=== PATIENT | male | born 1950 | race Caucasian/White ===

== ENCOUNTER → 2023-12-03 11:45 | Outpatient (CLI) | payer MEDICARE, SELFPAY ==
--- NOTE | 2023-12-03 | DI.MRI_ITS ---
Exam(s) MR CERVICAL SPINE WO/W EXAM: MR CERVICAL SPINE WO/W CLINICAL HISTORY: MULTIPLE MYELOMA, LESIONS C/T SPINE ON PET TECHNIQUE: Multiplanar multisequence MRI of the cervical spine was performed without intravenous con trast. FINDINGS: BONES: Vertebral body heights are maintained. Alignment is normal. There are innumerable abnormal enh ancing lesions throughout the cervical spine. There is a large lesion on the left side of the T5 adry tebral body which extends into the soft tissues and left-sided transverse process and lamina. It russell sures 2.9 cm AP by roughly 1.8 cm transverse by 1.5 cm cephalo caudad. It extends are and obliterate s the neural foramen at the T4-5 and T5-6 levels. There is no significant encroachment into the cent ral canal. There is inferior extension to the superior facets of cysts state C6. Additional lesion is seen on the right side at the C7 level which also does not extend into the central canal however d oes involve the C6-7 neural foramen.. Discs: There degenerative disc changes but no evidence of disc herniation. CERVICAL CORD: Craniovertebral junction is unremarkable. The cervical cord is normal size and signal intensity. IMPRESSION: Multiple abnormal enhancing lesions throughout the cervical spine, consistent with the patient's hist ory of multiple myeloma. No compromise of the central canal. Largest lesions as described above. DATA REPOSITORY:
--- NOTE | 2023-12-03 | DI.MRI_ITS ---
Exam(s) MR THORACIC SPINE WO/W EXAM: MR THORACIC SPINE WO/W CLINICAL HISTORY: MULTIPLE MYELOMA, C90.00, C/T SPINE LESIONS ON PET. TECHNIQUE: Multiplanar multisequence MRI of the Thoracic spine was performed. CONTRAST MATERIAL: IV Contrast: 16 mL of Dotarem contrast administered. FINDINGS: Bones: There are innumerable enhancing lesions throughout the thoracic spine, consistent with the pat ient's history multiple myeloma. There is a mild compression fracture of the inferior endplate of T5 . There only slight retropulsion of the inferior endplate of T5. There is no significant encroachme nt into the central canal. There is an expansile lesion involving the proximal right rib of the T7 v ertebral body. There is enhancing lesion in the left transverse process of T5 4. There is an enhanc ing lesion in the right transverse process of T10. Cord: The thoracic cord is normal size and signal intensity. No intrinsic cord lesion is present. Discs: No disc herniation or bulge is present. Soft tissues: Normal. IMPRESSION: Innumerable abnormal enhancing lesions in the thoracic spine is with patient's history of multiple my eloma. There is a mild compression fracture of the inferior endplate of T5 with only slight posterio r retropulsion of the endplate. The central canal is not compromised. DATA REPOSITORY:
[2023-12-03] MEDS: Normal Saline Flush 10 ML SYR IVP (15:19)
[2023-12-03] MEDS: Gadoterate meglumine 20 ML SYRINGE 16 ML IVP (15:19)
== END ==
PROVIDERS: Visit Provider Internal Medicine Hematology & Oncology
DX: M48.54XA Collapsed vertebra, not elsewhere classified, thoracic region, initial encounter for fracture (principal); C90.00 Multiple myeloma not having achieved remission
CPT/HCPCS: 72156; 72157

== ENCOUNTER 2023-12-13 04:38 | Outpatient (CLI) | payer MEDICARE, SELFPAY ==
[2023-12-13 08:12] LABS: Abs Immature Grans 0.19 10^3/uL (0.0-0.06); Absolute Basophil Count 0.03 10^3/uL (0.0-0.2); Absolute Eosinophil Count 0.49 10^3/uL (0.0-0.7); Absolute Lymphocyte Count 2.75 10^3/uL (1.2-3.4); Absolute Monocyte Count 0.84 10^3/uL (0.1-0.8); Absolute Neutrophil Count 5.94 10^3/uL (1.2-6.7); Basophils % 0.3; Eosinophils % 4.8; HCT 41.9 % (40.0-50.0); HGB 13.9 g/dL (13.5-17.5); Immature Grans % 1.9; Lymphocytes % 26.9; MCH 31.9 pg (27.0-33.0); MCHC 33.2 % (32.0-36.0); MCV 96 fL (80-95); MPV 10.4 fL (8.0-11.0); Monocytes % 8.2; Neutrophils % 57.9; Platelet Count 219 10^3/uL (130-400); RBC 4.36 10^6/uL (4.36-5.78); RDW 14.4 % (11.8-14.1); RDW-SD 50.5 fL; WBC 10.24 10^3/uL (4.4-10.8)
[2023-12-13 10:04] LABS: ALT 14 U/L (16-63); AST 19 U/L (15-37); Albumin 3.4 g/dL (3.4-5.0); Alkaline Phosphatase 124 U/L (46-116); Anion Gap 10.6 mmol/L (3-11); BUN 42 mg/dL (7-18); Bilirubin, Total 0.3 mg/dL (0.2-1.0); CO2 25.4 mmol/L (21.0-32.0); CREATININE 1.4 mg/dL (0.70-1.30); Calcium 9.5 mg/dL (8.5-10.1); Chloride 106 mmol/L (98-107); Estimated GFR 52.74 (mL/min/1.73m2); Glucose 93 mg/dL (74-106); Potassium 4.6 mmol/L (3.5-5.1); Sodium 142 mmol/L (136-145)
== END 2023-12-13 04:39 | disposition home or self-care (01) ==
LOC: LBO 04:38
PROVIDERS: Visit Provider Internal Medicine Hematology & Oncology
DX: C90.00 Multiple myeloma not having achieved remission (principal)
CPT/HCPCS: 36415; 80053; 85025

== ENCOUNTER 2023-12-20 01:28 | Outpatient (CLI) | payer MEDICARE, SELFPAY ==
[2023-12-20 07:59] LABS: Abs Immature Grans 0.03 10^3/uL (0.0-0.06); Absolute Basophil Count 0.02 10^3/uL (0.0-0.2); Absolute Eosinophil Count 0.26 10^3/uL (0.0-0.7); Absolute Lymphocyte Count 1.88 10^3/uL (1.2-3.4); Absolute Monocyte Count 0.66 10^3/uL (0.1-0.8); Absolute Neutrophil Count 4.44 10^3/uL (1.2-6.7); Basophils % 0.3; Eosinophils % 3.6; HCT 39.5 % (40.0-50.0); HGB 12.7 g/dL (13.5-17.5); Immature Grans % 0.4; Lymphocytes % 25.8; MCH 30.9 pg (27.0-33.0); MCHC 32.2 % (32.0-36.0); MCV 96 fL (80-95); MPV 10.6 fL (8.0-11.0); Monocytes % 9.1; Neutrophils % 60.8; Platelet Count 180 10^3/uL (130-400); RBC 4.11 10^6/uL (4.36-5.78); RDW 14.1 % (11.8-14.1); WBC 7.29 10^3/uL (4.4-10.8)
== END 2023-12-20 01:29 | disposition home or self-care (01) ==
LOC: LBO 01:28
PROVIDERS: Visit Provider Internal Medicine Hematology & Oncology
DX: C90.00 Multiple myeloma not having achieved remission (principal)
CPT/HCPCS: 36415; 85025

== ENCOUNTER 2023-12-27 10:35 | Outpatient (CLI) | payer MEDICARE, SELFPAY ==
[2023-12-27 10:55] LABS: Abs Immature Grans 0.05 10^3/uL (0.0-0.06); Absolute Basophil Count 0.02 10^3/uL (0.0-0.2); Absolute Eosinophil Count 0.31 10^3/uL (0.0-0.7); Absolute Monocyte Count 0.79 10^3/uL (0.1-0.8); Absolute Neutrophil Count 5.57 10^3/uL (1.2-6.7); Basophils % 0.2; Eosinophils % 3.8; HCT 37.9 % (40.0-50.0); HGB 12.5 g/dL (13.5-17.5); Immature Grans % 0.6; Lymphocytes % 18.2; MCH 31.7 pg (27.0-33.0); MCV 96 fL (80-95); MPV 10.4 fL (8.0-11.0); Monocytes % 9.6; Neutrophils % 67.6; Platelet Count 239 10^3/uL (130-400); RBC 3.94 10^6/uL (4.36-5.78); RDW 14.2 % (11.8-14.1); RDW-SD 50.1 fL; WBC 8.24 10^3/uL (4.4-10.8)
[2023-12-27 11:16] LABS: ALT 9 U/L (16-63); AST 10 U/L (15-37); Albumin 3.4 g/dL (3.4-5.0); Alkaline Phosphatase 168 U/L (46-116); Anion Gap 7.6 mmol/L (3-11); BUN 37 mg/dL (7-18); Bilirubin, Total 0.3 mg/dL (0.2-1.0); CO2 28.4 mmol/L (21.0-32.0); CREATININE 1.3 mg/dL (0.70-1.30); Calcium 8.9 mg/dL (8.5-10.1); Chloride 104 mmol/L (98-107); Estimated GFR 57.65 (mL/min/1.73m2); Glucose 77 mg/dL (74-106); Potassium 4.1 mmol/L (3.5-5.1); Sodium 140 mmol/L (136-145); Total Protein 6.6 g/dL (6.4-8.2)
[2023-12-28 10:00] LABS: IgA 54 mg/dL (85-499); IgG 393 mg/dL (610-1616); IgM 12 mg/dL (35-242); Kappa Free Light Chain 20.14 mg/dL (0.33-1.94); Lambda Free Light Chain 0.75 mg/dL (0.57-2.63)
[2023-12-28 14:15] LABS: Albumin 62.7 % (55.8-66.1); Albumin g/dL 3.9 g/dL (3.6-5.2); Total Protein 6.2 g/dL (6.3-8.2)
== END 2023-12-27 10:36 | disposition home or self-care (01) ==
LOC: LBO 10:36
PROVIDERS: Visit Provider Internal Medicine Hematology & Oncology
DX: C90.00 Multiple myeloma not having achieved remission (principal)
CPT/HCPCS: 36415; 80053; 82784; 83883; 84165; 85025

== ENCOUNTER → 2023-12-31 12:45 | Outpatient (BNVA) | payer MEDICARE, SELFPAY | PROVIDERS: Referring Provider Physician Assistant; Visit Provider Student in an Organized Health Care Education/Training Program | DX: J44.9 Chronic obstructive pulmonary disease, unspecified (principal); Z87.891 Personal history of nicotine dependence | CPT/HCPCS: 99205 ==

== ENCOUNTER 2024-01-11 02:53 | Outpatient (CLI) | payer MEDICARE, SELFPAY ==
[2024-01-11] MEDS: Levalbuterol HFA 15 GM INH 4 PUFF IH (09:45)
[2024-01-11] MEDS: Inhaler, Assist Device 1 EACH MC (09:46)
--- NOTE | 2024-01-11 12:26 | W.PFT ---
Date of service: 01/11/24 Time of Service: 08:05 Pulmonary Function Test Result Indications: COPD Interpretation Spirometry: Although the FEV1/FVC ratio is technically normal the flow volume loop is consistent with mild airflow limitation. No bronchodilator response. Lung Volumes: Normal lung volumes Diffusion Capacity: Decreased diffusion Airway Pressure: Normal airways resistance Impression Mild airflow obstruction with decreased diffusion. Clinical Correlation therefore is recommended.
== END 2024-01-11 02:54 | disposition home or self-care (01) ==
LOC: RT 02:53
PROVIDERS: Visit Provider Student in an Organized Health Care Education/Training Program
DX: J44.9 Chronic obstructive pulmonary disease, unspecified (principal)
CPT/HCPCS: 94060; 94726; 94729

== ENCOUNTER 2024-01-17 05:38 | Outpatient (CLI) | payer MEDICARE, SELFPAY ==
[2024-01-17 07:11] LABS: Abs Immature Grans 0.19 10^3/uL (0.0-0.06); Absolute Basophil Count 0.03 10^3/uL (0.0-0.2); Absolute Lymphocyte Count 1.42 10^3/uL (1.2-3.4); Absolute Monocyte Count 1.53 10^3/uL (0.1-0.8); Absolute Neutrophil Count 6.83 10^3/uL (1.2-6.7); Basophils % 0.3; Eosinophils % 8.3; HCT 38.3 % (40.0-50.0); HGB 12.5 g/dL (13.5-17.5); Immature Grans % 1.7; MCH 31.8 pg (27.0-33.0); MCHC 32.6 % (32.0-36.0); MCV 98 fL (80-95); MPV 11.9 fL (8.0-11.0); Neutrophils % 62.7; Platelet Count 167 10^3/uL (130-400); RBC 3.93 10^6/uL (4.36-5.78); RDW 14.2 % (11.8-14.1); RDW-SD 50.7 fL
[2024-01-17 07:34] LABS: ALT 7 U/L (16-63); AST 10 U/L (15-37); Albumin 3.3 g/dL (3.4-5.0); Alkaline Phosphatase 119 U/L (46-116); Anion Gap 12.3 mmol/L (3-11); BUN 36 mg/dL (7-18); Bilirubin, Total 0.6 mg/dL (0.2-1.0); CO2 23.7 mmol/L (21.0-32.0); CREATININE 1.4 mg/dL (0.70-1.30); Calcium 8.3 mg/dL (8.5-10.1); Chloride 107 mmol/L (98-107); Estimated GFR 52.74 (mL/min/1.73m2); Glucose 106 mg/dL (74-106); Potassium 3.7 mmol/L (3.5-5.1); Sodium 143 mmol/L (136-145); Total Protein 6.6 g/dL (6.4-8.2)
== END 2024-01-17 05:39 | disposition home or self-care (01) ==
LOC: LBO 05:38
PROVIDERS: Visit Provider Nurse Practitioner Family
DX: C90.00 Multiple myeloma not having achieved remission (principal)
CPT/HCPCS: 36415; 80053; 85025

== ENCOUNTER 2024-01-24 07:59 | Outpatient (CLI) | payer MEDICARE, SELFPAY ==
[2024-01-24 07:57] LABS: Abs Immature Grans 0.11 10^3/uL (0.0-0.06); Absolute Basophil Count 0.02 10^3/uL (0.0-0.2); Absolute Eosinophil Count 1.28 10^3/uL (0.0-0.7); Absolute Lymphocyte Count 1.63 10^3/uL (1.2-3.4); Absolute Monocyte Count 1.03 10^3/uL (0.1-0.8); Basophils % 0.3; Eosinophils % 16.7; HCT 36.7 % (40.0-50.0); HGB 12.2 g/dL (13.5-17.5); Immature Grans % 1.4; Lymphocytes % 21.3; MCH 31.9 pg (27.0-33.0); MCHC 33.2 % (32.0-36.0); MCV 96 fL (80-95); MPV 12.1 fL (8.0-11.0); Monocytes % 13.4; Neutrophils % 46.9; Platelet Count 193 10^3/uL (130-400); RBC 3.83 10^6/uL (4.36-5.78); RDW 14.6 % (11.8-14.1); RDW-SD 50.8 fL; WBC 7.67 10^3/uL (4.4-10.8)
[2024-01-24 08:36] LABS: ALT 11 U/L (16-63); AST 10 U/L (15-37); Albumin 3.3 g/dL (3.4-5.0); Alkaline Phosphatase 110 U/L (46-116); Anion Gap 10.1 mmol/L (3-11); BUN 23 mg/dL (7-18); Bilirubin, Total 0.6 mg/dL (0.2-1.0); CO2 24.9 mmol/L (21.0-32.0); CREATININE 1.2 mg/dL (0.70-1.30); Calcium 7.9 mg/dL (8.5-10.1); Chloride 108 mmol/L (98-107); Estimated GFR 63.46 (mL/min/1.73m2); Glucose 107 mg/dL (74-106); Potassium 3.5 mmol/L (3.5-5.1); Sodium 143 mmol/L (136-145); Total Protein 6.4 g/dL (6.4-8.2)
[2024-01-25 14:24] LABS: Albumin 61.2 % (55.8-66.1); Albumin g/dL 3.5 g/dL (3.6-5.2); Total Protein 5.8 g/dL (6.3-8.2)
[2024-01-25 15:08] LABS: IgA 58 mg/dL (85-499); IgG 443 mg/dL (610-1616); IgM 17 mg/dL (35-242); Kappa Free Light Chain 3.09 mg/dL (0.33-1.94)
== END 2024-01-24 08:00 | disposition home or self-care (01) ==
LOC: LBO 08:00
PROVIDERS: Visit Provider Internal Medicine Hematology & Oncology
DX: C90.00 Multiple myeloma not having achieved remission (principal)
CPT/HCPCS: 36415; 80053; 82784; 83883; 84165; 85025

== ENCOUNTER 2024-02-07 10:18 | Outpatient (CLI) | payer MEDICARE, SELFPAY ==
[2024-02-07 09:34] LABS: Abs Immature Grans 0.19 10^3/uL (0.0-0.06); Absolute Basophil Count 0.06 10^3/uL (0.0-0.2); Absolute Eosinophil Count 0.66 10^3/uL (0.0-0.7); Absolute Lymphocyte Count 1.47 10^3/uL (1.2-3.4); Absolute Monocyte Count 0.58 10^3/uL (0.1-0.8); Absolute Neutrophil Count 3.03 10^3/uL (1.2-6.7); HCT 38.4 % (40.0-50.0); HGB 12.6 g/dL (13.5-17.5); Immature Grans % 3.2; Lymphocytes % 24.5; MCH 31.7 pg (27.0-33.0); MCHC 32.8 % (32.0-36.0); MCV 97 fL (80-95); Monocytes % 9.7; Neutrophils % 50.6; Platelet Count 189 10^3/uL (130-400); RBC 3.97 10^6/uL (4.36-5.78); RDW 14.7 % (11.8-14.1); WBC 5.99 10^3/uL (4.4-10.8)
[2024-02-07 09:49] LABS: ALT 11 U/L (16-63); AST 10 U/L (15-37); Albumin 3.3 g/dL (3.4-5.0); Alkaline Phosphatase 96 U/L (46-116); Anion Gap 12.1 mmol/L (3-11); BUN 27 mg/dL (7-18); Bilirubin, Total 0.4 mg/dL (0.2-1.0); CO2 22.9 mmol/L (21.0-32.0); CREATININE 1.3 mg/dL (0.70-1.30); Chloride 107 mmol/L (98-107); Estimated GFR 57.65 (mL/min/1.73m2); Glucose 103 mg/dL (74-106); LDH 181 U/L (85-227); Potassium 4.1 mmol/L (3.5-5.1); Sodium 142 mmol/L (136-145); Total Protein 6.6 g/dL (6.4-8.2)
[2024-02-08 10:40] LABS: IgA 79 mg/dL (85-499); IgG 524 mg/dL (610-1616); IgM 17 mg/dL (35-242); Kappa Free Light Chain 3.31 mg/dL (0.33-1.94); Lambda Free Light Chain 1.28 mg/dL (0.57-2.63)
[2024-02-08 13:49] LABS: Albumin 61.1 % (55.8-66.1); Albumin g/dL 3.7 g/dL (3.6-5.2); Total Protein 6.1 g/dL (6.3-8.2)
== END 2024-02-07 10:19 | disposition home or self-care (01) ==
LOC: LBO 10:19
PROVIDERS: PCP Family Medicine; Visit Provider Nurse Practitioner Family
DX: C90.00 Multiple myeloma not having achieved remission (principal)
CPT/HCPCS: 36415; 80053; 82784; 83615; 83883; 84165; 85025

== ENCOUNTER 2024-02-14 04:58 | Outpatient (CLI) | payer MEDICARE, SELFPAY ==
[2024-02-14 09:44] LABS: Abs Immature Grans 0.08 10^3/uL (0.0-0.06); Absolute Basophil Count 0.03 10^3/uL (0.0-0.2); Absolute Eosinophil Count 0.44 10^3/uL (0.0-0.7); Absolute Monocyte Count 1.18 10^3/uL (0.1-0.8); Basophils % 0.4; Eosinophils % 5.5; HCT 36.5 % (40.0-50.0); HGB 11.8 g/dL (13.5-17.5); Lymphocytes % 15.1; MCH 31.2 pg (27.0-33.0); MCHC 32.3 % (32.0-36.0); MCV 97 fL (80-95); MPV 12.3 fL (8.0-11.0); Monocytes % 14.9; Neutrophils % 63.1; Platelet Count 161 10^3/uL (130-400); RBC 3.78 10^6/uL (4.36-5.78); RDW 14.8 % (11.8-14.1); RDW-SD 52.1 fL; WBC 7.93 10^3/uL (4.4-10.8)
[2024-02-14 10:00] LABS: ALT 9 U/L (16-63); AST 11 U/L (15-37); Albumin 3.3 g/dL (3.4-5.0); Alkaline Phosphatase 85 U/L (46-116); Anion Gap 12.3 mmol/L (3-11); BUN 34 mg/dL (7-18); Bilirubin, Total 0.7 mg/dL (0.2-1.0); CO2 23.7 mmol/L (21.0-32.0); CREATININE 1.3 mg/dL (0.70-1.30); Calcium 8.5 mg/dL (8.5-10.1); Chloride 107 mmol/L (98-107); Estimated GFR 57.65 (mL/min/1.73m2); Glucose 96 mg/dL (74-106); LDH 154 U/L (85-227); Potassium 3.5 mmol/L (3.5-5.1); Sodium 143 mmol/L (136-145); Total Protein 6.3 g/dL (6.4-8.2)
[2024-02-15 09:47] LABS: IgA 75 mg/dL (85-499); IgG 547 mg/dL (610-1616); IgM 27 mg/dL (35-242); Kappa Free Light Chain 3.31 mg/dL (0.33-1.94); Lambda Free Light Chain 1.84 mg/dL (0.57-2.63)
[2024-02-15 14:15] LABS: Albumin 62.2 % (55.8-66.1); Albumin g/dL 3.7 g/dL (3.6-5.2); Total Protein 5.9 g/dL (6.3-8.2)
== END 2024-02-14 04:59 | disposition home or self-care (01) ==
PROVIDERS: PCP Family Medicine; Visit Provider Nurse Practitioner Family
DX: C90.00 Multiple myeloma not having achieved remission (principal)
CPT/HCPCS: 36415; 80053; 82784; 83615; 83883; 84165; 85025

== ENCOUNTER 2024-02-21 05:30 | Outpatient (CLI) | payer MEDICARE, SELFPAY ==
[2024-02-21 09:16] LABS: Abs Immature Grans 0.08 10^3/uL (0.0-0.06); Absolute Basophil Count 0.03 10^3/uL (0.0-0.2); Absolute Eosinophil Count 0.74 10^3/uL (0.0-0.7); Absolute Lymphocyte Count 1.14 10^3/uL (1.2-3.4); Absolute Monocyte Count 0.85 10^3/uL (0.1-0.8); Absolute Neutrophil Count 3.07 10^3/uL (1.2-6.7); Basophils % 0.5; Eosinophils % 12.5; HCT 36.3 % (40.0-50.0); HGB 11.8 g/dL (13.5-17.5); Immature Grans % 1.4; Lymphocytes % 19.3; MCH 31.8 pg (27.0-33.0); MCHC 32.5 % (32.0-36.0); MCV 98 fL (80-95); MPV 12.9 fL (8.0-11.0); Monocytes % 14.4; Neutrophils % 51.9; Platelet Count 133 10^3/uL (130-400); RBC 3.71 10^6/uL (4.36-5.78); RDW 15.3 % (11.8-14.1); RDW-SD 54.5 fL; WBC 5.91 10^3/uL (4.4-10.8)
[2024-02-21 09:51] LABS: ALT 24 U/L (16-63); AST 11 U/L (15-37); Albumin 3.4 g/dL (3.4-5.0); Alkaline Phosphatase 76 U/L (46-116); Anion Gap 10.3 mmol/L (3-11); BUN 31 mg/dL (7-18); Bilirubin, Total 0.6 mg/dL (0.2-1.0); CO2 26.7 mmol/L (21.0-32.0); CREATININE 1.2 mg/dL (0.70-1.30); Calcium 8.3 mg/dL (8.5-10.1); Chloride 105 mmol/L (98-107); Estimated GFR 63.46 (mL/min/1.73m2); Glucose 84 mg/dL (74-106); LDH 175 U/L (85-227); Potassium 3.8 mmol/L (3.5-5.1); Sodium 142 mmol/L (136-145); Total Protein 6.5 g/dL (6.4-8.2)
[2024-02-22 09:45] LABS: IgA 60 mg/dL (85-499); IgG 479 mg/dL (610-1616); IgM 22 mg/dL (35-242); Kappa Free Light Chain 2.37 mg/dL (0.33-1.94); Lambda Free Light Chain 1.31 mg/dL (0.57-2.63)
[2024-02-22 13:43] LABS: Albumin 62.4 % (55.8-66.1); Albumin g/dL 3.7 g/dL (3.6-5.2)
== END 2024-02-21 05:31 | disposition home or self-care (01) ==
PROVIDERS: Internal Medicine Hematology & Oncology; PCP Family Medicine; Visit Provider Nurse Practitioner Family
DX: C90.00 Multiple myeloma not having achieved remission (principal)
CPT/HCPCS: 36415; 80053; 82784; 83615; 83883; 84165; 85025

== ENCOUNTER 2024-03-06 01:09 | Outpatient (CLI) | payer MEDICARE, SELFPAY ==
[2024-03-06 12:58] LABS: Absolute Eosinophil Count 0.62 10^3/uL (0.0-0.7); Absolute Lymphocyte Count 1.59 10^3/uL (1.2-3.4); Absolute Monocyte Count 0.54 10^3/uL (0.1-0.8); Absolute Neutrophil Count 3.01 10^3/uL (1.2-6.7); Eosinophils % 10.6 %; HCT 37.7 % (40.0-50.0); HGB 12.8 g/dL (13.5-17.5); Lymphocytes % 27.1 %; MCV 97 fL (80-95); MPV 12.2 fL (8.0-11.0); Monocytes % 9.2 %; Neutrophils % 51.2 %; Platelet Count 175 10^3/uL (130-400); RBC 3.88 10^6/uL (4.36-5.78); RDW 15.5 % (11.8-14.1); RDW-SD 54.8 fL; WBC 5.87 10^3/uL (4.4-10.8)
[2024-03-06 12:59] LABS: Abs Immature Grans 0.07 10^3/uL (0.0-0.06); Absolute Basophil Count 0.04 10^3/uL (0.0-0.2); Basophils % 0.7 %; Immature Grans % 1.2 %
== END 2024-03-06 01:10 | disposition home or self-care (01) ==
LOC: LBO 01:09
PROVIDERS: PCP Family Medicine; Visit Provider Internal Medicine Hematology & Oncology
DX: C90.00 Multiple myeloma not having achieved remission (principal)
CPT/HCPCS: 36415; 85025

== ENCOUNTER 2024-03-13 05:07 | Outpatient (CLI) | payer MEDICARE, SELFPAY ==
[2024-03-13 09:31] LABS: Abs Immature Grans 0.04 10^3/uL (0.0-0.06); Absolute Basophil Count 0.05 10^3/uL (0.0-0.2); Absolute Eosinophil Count 0.78 10^3/uL (0.0-0.7); Absolute Lymphocyte Count 1.17 10^3/uL (1.2-3.4); Absolute Monocyte Count 1.18 10^3/uL (0.1-0.8); Absolute Neutrophil Count 4.48 10^3/uL (1.2-6.7); Basophils % 0.6 %; Eosinophils % 10.1 %; HCT 37.8 % (40.0-50.0); HGB 12.1 g/dL (13.5-17.5); Immature Grans % 0.5 %; Lymphocytes % 15.2 %; MCH 31.3 pg (27.0-33.0); MCV 98 fL (80-95); MPV 12.6 fL (8.0-11.0); Monocytes % 15.3 %; Neutrophils % 58.3 %; Platelet Count 123 10^3/uL (130-400); RBC 3.86 10^6/uL (4.36-5.78); RDW 14.9 % (11.8-14.1); RDW-SD 54.2 fL
== END 2024-03-13 05:08 | disposition home or self-care (01) ==
LOC: LBO 05:07
PROVIDERS: PCP Family Medicine; Visit Provider Internal Medicine Hematology & Oncology
DX: C90.00 Multiple myeloma not having achieved remission (principal)
CPT/HCPCS: 36415; 85025

== ENCOUNTER 2024-03-20 11:35 | Outpatient (CLI) | payer MEDICARE, SELFPAY ==
[2024-03-20 11:35] LABS: Abs Immature Grans 0.09 10^3/uL (0.0-0.06); Absolute Basophil Count 0.03 10^3/uL (0.0-0.2); Absolute Eosinophil Count 1.22 10^3/uL (0.0-0.7); Absolute Lymphocyte Count 0.92 10^3/uL (1.2-3.4); Absolute Monocyte Count 1.03 10^3/uL (0.1-0.8); Absolute Neutrophil Count 3.36 10^3/uL (1.2-6.7); Basophils % 0.5 %; Eosinophils % 18.3 %; HCT 38.7 % (40.0-50.0); HGB 12.4 g/dL (13.5-17.5); Immature Grans % 1.4 %; Lymphocytes % 13.8 %; MCH 31.4 pg (27.0-33.0); MCV 98 fL (80-95); MPV 11.8 fL (8.0-11.0); Monocytes % 15.5 %; Neutrophils % 50.5 %; Platelet Count 153 10^3/uL (130-400); RBC 3.95 10^6/uL (4.36-5.78); RDW 15.4 % (11.8-14.1); RDW-SD 54.8 fL; WBC 6.65 10^3/uL (4.4-10.8)
[2024-03-20 11:54] LABS: ALT 11 U/L (16-63); AST 11 U/L (15-37); Albumin 3.5 g/dL (3.4-5.0); Alkaline Phosphatase 61 U/L (46-116); BUN 23 mg/dL (7-18); Bilirubin, Total 0.6 mg/dL (0.2-1.0); CREATININE 1.2 mg/dL (0.70-1.30); Calcium 8.4 mg/dL (8.5-10.1); Chloride 106 mmol/L (98-107); Estimated GFR 63.46 (mL/min/1.73m2); Glucose 89 mg/dL (74-106); LDH 157 U/L (85-227); Potassium 3.5 mmol/L (3.5-5.1); Sodium 139 mmol/L (136-145); Total Protein 6.5 g/dL (6.4-8.2)
[2024-03-21 10:23] LABS: IgA 84 mg/dL (85-499); IgG 477 mg/dL (610-1616); IgM 22 mg/dL (35-242); Kappa Free Light Chain 2.25 mg/dL (0.33-1.94); Lambda Free Light Chain 2.01 mg/dL (0.57-2.63)
[2024-03-21 14:06] LABS: Albumin 63.8 % (55.8-66.1); Albumin g/dL 3.9 g/dL (3.6-5.2); Total Protein 6.1 g/dL (6.3-8.2)
== END 2024-03-20 11:36 | disposition home or self-care (01) ==
LOC: LBO 11:35
PROVIDERS: PCP Family Medicine; Visit Provider Nurse Practitioner Family
DX: C90.00 Multiple myeloma not having achieved remission (principal)
CPT/HCPCS: 36415; 80053; 82784; 83615; 83883; 84165; 85025

== ENCOUNTER 2024-03-27 10:48 | Outpatient (CLI) | payer MEDICARE, SELFPAY ==
[2024-03-27 10:30] LABS: Abs Immature Grans 0.03 10^3/uL (0.0-0.06); Absolute Basophil Count 0.08 10^3/uL (0.0-0.2); Absolute Eosinophil Count 0.28 10^3/uL (0.0-0.7); Absolute Lymphocyte Count 1.27 10^3/uL (1.2-3.4); Absolute Monocyte Count 0.74 10^3/uL (0.1-0.8); Basophils % 1.3 %; Eosinophils % 4.5 %; HCT 37.3 % (40.0-50.0); HGB 12.1 g/dL (13.5-17.5); Immature Grans % 0.5 %; Lymphocytes % 20.5 %; MCH 31.9 pg (27.0-33.0); MCHC 32.4 % (32.0-36.0); MCV 98 fL (80-95); MPV 10.7 fL (8.0-11.0); Monocytes % 11.9 %; Neutrophils % 61.3 %; Platelet Count 282 10^3/uL (130-400); RBC 3.79 10^6/uL (4.36-5.78); RDW 15.1 % (11.8-14.1); RDW-SD 54.7 fL
== END 2024-03-27 10:49 | disposition home or self-care (01) ==
LOC: LBO 10:49
PROVIDERS: PCP Family Medicine; Visit Provider Nurse Practitioner Family
DX: C90.00 Multiple myeloma not having achieved remission (principal)
CPT/HCPCS: 36415; 85025

== ENCOUNTER → 2024-04-02 13:01 | Outpatient (BNVA) | payer MEDICARE, SELFPAY | PROVIDERS: PCP Family Medicine; Visit Provider Physician Assistant Surgical | DX: J44.9 Chronic obstructive pulmonary disease, unspecified (principal); R25.1 Tremor, unspecified; Z87.891 Personal history of nicotine dependence | CPT/HCPCS: 99214 ==

== ENCOUNTER 2024-04-03 05:07 | Outpatient (CLI) | payer MEDICARE, SELFPAY ==
[2024-04-03 12:49] LABS: Abs Immature Grans 0.08 10^3/uL (0.0-0.06); Absolute Basophil Count 0.04 10^3/uL (0.0-0.2); Absolute Eosinophil Count 0.39 10^3/uL (0.0-0.7); Absolute Lymphocyte Count 1.25 10^3/uL (1.2-3.4); Absolute Monocyte Count 0.66 10^3/uL (0.1-0.8); Absolute Neutrophil Count 2.83 10^3/uL (1.2-6.7); Basophils % 0.8 %; Eosinophils % 7.4 %; HCT 37.9 % (40.0-50.0); HGB 12.4 g/dL (13.5-17.5); Immature Grans % 1.5 %; Lymphocytes % 23.8 %; MCH 31.8 pg (27.0-33.0); MCHC 32.7 % (32.0-36.0); MCV 97 fL (80-95); MPV 11.9 fL (8.0-11.0); Monocytes % 12.6 %; Neutrophils % 53.9 %; Platelet Count 150 10^3/uL (130-400); RDW 15.3 % (11.8-14.1); RDW-SD 54.6 fL; WBC 5.25 10^3/uL (4.4-10.8)
== END 2024-04-03 05:08 | disposition home or self-care (01) ==
PROVIDERS: PCP Family Medicine; Visit Provider Nurse Practitioner Family
DX: C90.00 Multiple myeloma not having achieved remission (principal)
CPT/HCPCS: 36415; 85025

== ENCOUNTER 2024-04-10 01:06 | Outpatient (CLI) | payer MEDICARE, SELFPAY ==
[2024-04-10 13:07] LABS: Abs Immature Grans 0.07 10^3/uL (0.0-0.06); Absolute Basophil Count 0.03 10^3/uL (0.0-0.2); Absolute Eosinophil Count 0.27 10^3/uL (0.0-0.7); Absolute Lymphocyte Count 0.89 10^3/uL (1.2-3.4); Absolute Monocyte Count 1.73 10^3/uL (0.1-0.8); Absolute Neutrophil Count 7.38 10^3/uL (1.2-6.7); Basophils % 0.3 %; Eosinophils % 2.6 %; HCT 36.1 % (40.0-50.0); Immature Grans % 0.7 %; Lymphocytes % 8.6 %; MCH 31.6 pg (27.0-33.0); MCHC 33.2 % (32.0-36.0); MCV 95 fL (80-95); MPV 12.5 fL (8.0-11.0); Monocytes % 16.7 %; Neutrophils % 71.1 %; Platelet Count 133 10^3/uL (130-400); RDW 15.4 % (11.8-14.1); RDW-SD 52.9 fL; WBC 10.37 10^3/uL (4.4-10.8)
[2024-04-10 13:26] LABS: ALT 21 U/L (16-63); AST 9 U/L (15-37); Albumin 3.5 g/dL (3.4-5.0); Alkaline Phosphatase 60 U/L (46-116); Anion Gap 12.6 mmol/L (3-11); BUN 27 mg/dL (7-18); Bilirubin, Total 0.8 mg/dL (0.2-1.0); CO2 22.4 mmol/L (21.0-32.0); CREATININE 1.4 mg/dL (0.70-1.30); Calcium 8.3 mg/dL (8.5-10.1); Chloride 103 mmol/L (98-107); Estimated GFR 52.74 (mL/min/1.73m2); Glucose 110 mg/dL (74-106); LDH 163 U/L (85-227); Potassium 3.9 mmol/L (3.5-5.1); Sodium 138 mmol/L (136-145); Total Protein 6.6 g/dL (6.4-8.2)
[2024-04-11 08:29] LABS: IgA 90 mg/dL (85-499); IgG 418 mg/dL (610-1616); IgM 16 mg/dL (35-242); Kappa Free Light Chain 1.75 mg/dL (0.33-1.94); Lambda Free Light Chain 1.86 mg/dL (0.57-2.63)
[2024-04-11 14:29] LABS: Albumin 62.6 % (55.8-66.1); Albumin g/dL 3.8 g/dL (3.6-5.2); Total Protein 6.1 g/dL (6.3-8.2)
== END 2024-04-10 01:07 | disposition home or self-care (01) ==
LOC: LBO 01:06
PROVIDERS: PCP Family Medicine; Visit Provider Nurse Practitioner Family
DX: C90.00 Multiple myeloma not having achieved remission (principal)
CPT/HCPCS: 36415; 80053; 82784; 83615; 83883; 84165; 85025

== ENCOUNTER 2024-04-14 11:10 | Emergency (ER) | payer MEDICARE, SELFPAY ==
[2024-04-14 11:14] VITALS: BP 92/55; PULSE 60; RESP 20; O2SAT 97
--- NOTE | 2024-04-14 11:23 | W.ED.GENAD ---
Discharge Plan Disposition Patient Disposition: Home Condition: Stable Discharge Details Clinical Impression: Pain in lower jaw Primary Care Provider: Nba De La Torre ED Provider: Boubacar Galvez Leroy Meds and New Rx's Prescriptions: New prednisone 20 mg tablet 60 mg PO DAILY 4 Days Qty: 12 0RF amoxicillin-pot clavulanate 875-125 mg tablet 1 tab PO BID Qty: 14 0RF Continued magnesium 250 mg tablet 400 mg PO DAILY cyanocobalamin (vitamin B-12) 1,000 mcg capsule 1,000 mcg PO DAILY oxycodone 5 mg tablet 5 mg PO Q4H PRN ibuprofen 200 mg tablet 200 mg PO Q6H PRN lidocaine 5 % adhesive patch,medicated 1 patch topical DAILY Rx Instructions: leave on most painful area for up to 12 hrs acyclovir 400 mg tablet 400 mg PO BID lenalidomide 10 mg capsule 25 mg PO DAILY Rx Instructions: swallow whole with glass of water; do not open, crush, chew , break, or dissolve acetaminophen 500 mg capsule 1,000 mg PO Q6H PRN bortezomib [Velcade] 3.5 mg recon soln 2.4 mg IV QWEEK Rx Instructions: administer on days 1, 8, 15, and 22 of a 35-day/5-week cycle albuterol sulfate 90 mcg/actuation HFA aerosol inhaler 2 puff inhalation Q6H PRN (Reason: shortness of breath or wheezing) Qty: 8.5 12RF Breztri Aerosphere 160-9-4.8 mcg/actuation HFA aerosol inhaler 2 inh inhalation BID Qty: 10.7 12RF dexamethasone 4 mg tablet 40 mg PO DAILY Rx Instructions: Once a week before Chemo treatment levalbuterol HCl 0.63 mg/3 mL solution for nebulization 0.63 mg inhalation Q6H PRN Qty: 90 12RF denosumab 120 mg/1.7 mL (70 mg/mL) solution 120 mg subcut Q4W clonazepam 0.5 mg tablet See Rx Instructions PO BID PRN Rx Instructions: .5-1 tablet orally twice a day PRN; levothyroxine 88 mcg tablet 88 mcg PO DAILY multivitamin Tablet 1 tab PO DAILY sertraline 100 mg tablet 100 mg PO DAILY carbidopa-levodopa 25-100 mg tablet extended release See Rx Instructions PO TID Rx Instructions: orally three times a day; vitamin D3-vitamin K2 (MK4) 1,000-100 unit-mcg tablet 1 tab PO DAILY aspirin 81 mg tablet,delayed release (DR/EC) 81 mg PO DAILY [id number] mg-12.5mcg-22.5 m 1 cap PO BID Discharge Instructions Additional Instructions: You are being treated for a likely dental infection If no improvement within a week follow-up with your dentist If you feel more ill or have new symptoms such as high fevers return to the emergency department for reevaluation HPI General Mode of arrival: ambulatory. Date/Time Provider Initiated Documentation: 04/14/24 11:13. Limitations to Documentation: no limitations. Information obtained by: patient. History of Present Illness 73 year old M presents to the emergency department with the chief complaint of left lower jaw pain and swelling, described as moderate, Quality is described as aching, Patient started experiencing this day(s) (2) and it has been constant. No relieving factors improve symptom(s), No exacerbating factors reported . Patient notes no other symptoms.; denies fever/chills. Related Data Home Medications Medication Instructions Recorded Confirmed clonazepam 0.5 mg tablet See Rx Instructions PO BID PRN 12/14/23 02/04/24 levothyroxine 88 mcg tablet 88 mcg PO DAILY 12/14/23 04/02/24 multivitamin 1 tab PO DAILY 12/14/23 04/02/24 sertraline 100 mg tablet 100 mg PO DAILY 12/14/23 04/02/24 acetaminophen 500 mg capsule 1,000 mg PO Q6H PRN 12/31/23 04/02/24 acyclovir 400 mg tablet 400 mg PO BID 12/31/23 04/02/24 albuterol sulfate 90 mcg/actuation 2 puff inhalation Q6H PRN 12/31/23 04/02/24 aerosol inhaler shortness of breath or wheezing #8.5 grams bortezomib 3.5 mg injection powder 2.4 mg IV QWEEK 12/31/23 04/02/24 for solution (Velcade) budesonide 160 mcg-glycopyr 9 2 inh inhalation BID #10.7 grams 12/31/23 04/02/24 mcg-formot 4.8 mcg/actuation HFA inhaler (Breztri Aerosphere) cyanocobalamin (vitamin B-12) 1,000 mcg PO DAILY 12/31/23 04/02/24 1,000 mcg capsule ibuprofen 200 mg tablet 200 mg PO Q6H PRN 12/31/23 04/02/24 lenalidomide 10 mg capsule 25 mg PO DAILY 12/31/23 04/02/24 lidocaine 5 % topical patch 1 patch topical DAILY 12/31/23 04/02/24 magnesium 250 mg tablet 400 mg PO DAILY 12/31/23 04/02/24 oxycodone 5 mg tablet 5 mg PO Q4H PRN 12/31/23 04/02/24 aspirin 81 mg tablet,delayed 81 mg PO DAILY 01/16/24 04/02/24 release carbidopa ER 25 mg-levodopa 100 mg See Rx Instructions PO TID 01/16/24 04/02/24 tablet,extended release cholecalciferol (vit D3) 1,000 1 tab PO DAILY 01/16/24 02/04/24 unit-vitamin K2 (MK4) 100 mcg tablet denosumab 120 mg/1.7 mL (70 mg/mL) 120 mg subcut Q4W 02/04/24 04/02/24 subcutaneous solution dexamethasone 4 mg tablet 40 mg PO DAILY 02/04/24 04/02/24 [id number] 1 cap PO BID 02/29/24 04/02/24 mg-12.5mcg-22.5 m levalbuterol HCl 0.63 mg/3 mL 0.63 mg (3 mL) inhalation Q6H PRN 04/02/24 04/02/24 solution for nebulization #90 mL amoxicillin 875 mg-potassium 1 tab PO BID #14 tabs 04/14/24 clavulanate 125 mg tablet prednisone 20 mg tablet 60 mg (3 x 20 mg) PO DAILY 4 days 04/14/24 #12 tabs Previous Rx's Medication Instructions Recorded albuterol sulfate 90 mcg/actuation 2 puff inhalation Q6H PRN 12/31/23 aerosol inhaler shortness of breath or wheezing #8.5 grams budesonide 160 mcg-glycopyr 9 2 inh inhalation BID #10.7 grams 12/31/23 mcg-formot 4.8 mcg/actuation HFA inhaler (Breztri Aerosphere) levalbuterol HCl 0.63 mg/3 mL 0.63 mg (3 mL) inhalation Q6H PRN 04/02/24 solution for nebulization #90 mL amoxicillin 875 mg-potassium 1 tab PO BID #14 tabs 04/14/24 clavulanate 125 mg tablet prednisone 20 mg tablet 60 mg (3 x 20 mg) PO DAILY 4 days 04/14/24 #12 tabs Allergies Allergy/AdvReac Type Severity Reaction Status Date / Time xena Allergy mouth Uncoded 04/14/24 11:16 breakout generic advair AdvReac Severe swollen Uncoded 04/14/24 11:16 lips,blisters in mouth,loss of smell General Stated Complaint: [facility] ELYSSA: 3 Review of Systems All systems reviewed & are unremarkable except as noted in HPI and below Constitutional Constitutional: Denies chills, Denies fever(s) and Denies weakness ENT Ears, Nose, Mouth, and Throat: Denies change in voice Cardiovascular Cardiovascular: Denies chest pain and Denies dyspnea Respiratory Respiratory: Denies cough and Denies dyspnea Gastrointestinal Gastrointestinal: Denies abdominal pain, Denies nausea and Denies vomiting Musculoskeletal Musculoskeletal: Denies joint swelling Neurologic Neurologic: Denies weakness Exam Const General: no acute distress Orientation: alert [facility] Head: normal to inspection Ears: external ears normal General nose exam: external nose normal Mouth: moist mucous membranes Eyes General: appearance normal, both eyes and all related structures Neck Neck: normal visual inspection Resp Effort & Inspection: normal respiratory effort and able to speak in complete sentences Cardio Rate: regular rate Skin General skin exam: no rashes or lesions noted Neuro General: patient alert and patient oriented x3 Extrem General: normal to inspection Psych Mental Status: mental status grossly normal Course Vital Signs Vital signs: Vital Signs Pulse 60 04/14/24 11:14 Respiratory Rate 04/14/24 11:14 Blood Pressure 92/55 L 04/14/24 11:14 Pulse Oximetry 97 04/14/24 11:14 Pulse 60 04/14/24 11:14 Respiratory Rate 04/14/24 11:14 Blood Pressure 92/55 L 04/14/24 11:14 Blood Pressure Position Sitting 04/14/24 11:14 Pulse Oximetry 97 04/14/24 11:14 Oxygen Delivery Method Room Air 04/14/24 11:14 Oxygen Flow Rate 0 04/14/24 11:14 Medical Decision Making 73-year-old male with a history of multiple myeloma, COPD, who comes in with 2 days of left lower jaw discomfort and mild swelling. He denies any fevers, difficulty swallowing. He arrives amatory and appears well in no distress. He has very mild swelling along the left lower mandible. He has no submandibular swelling, no pain over the hyoid, no restricted neck movements. He has a normal posterior pharynx with midline uvula. He has a removed the left mid molar that has mild erythema, no drainage, no visible drainable abscess. His symptoms are most consistent with likely a dental infection. Given his well appearance doubt Vernon's or other serious pathology and do not feel any labs or imaging indicated. Will start him on Augmentin and a short course of prednisone and advised to follow-up with a dentist, return precautions given Differential Diagnosis Differential Diagnosis: Dental abscess, pulpitis Quality:[facility] Health Related Social Needs: No Data to Display PFSH All Active Problems (Updated 04/14/24 @ 11:23 by Boubacar Galvez MD) Pain in lower jaw (Acute) Multiple myeloma in remission (Acute) [place] light chain myeloma (Acute ~11/2023) Hypothyroidism (Chronic) Multiple myeloma not having achieved remission (Acute) Bronchitis, mucopurulent recurrent (Acute) Personal history of nicotine dependence (Acute) COPD (chronic obstructive pulmonary disease) (Chronic) Tremor (Acute) Memory impairment (Acute) Parkinson disease (Chronic) Insomnia (Acute) Hx of chronic kidney disease (Acute) Hearing impaired person (Acute) Depression (Chronic) COPD with acute exacerbation (Acute) Surgical History (Updated 01/16/24 @ 16:01 by Kirstie Hastings RN) History of biopsy (10/31/23) Shoulder mass. [facility] History of bone marrow biopsy (11/29/23) [facility] Family History (Updated 01/31/24 @ 09:58 by She Manzano) Mother Lymphoma Heart disease Pacemaker Asthma Father Asbestosis Brother Brain aneurysm Sister Stroke Maternal Grandfather No problems noted. Maternal Grandmother Diabetes Social History (Updated 01/09/24 @ 09:15 by Lesly Blanco) Smoking/Tobacco Use Status: Former Tobacco Use tobacco type: cigarettes and e-cigarettes Quit Date: 10/29/20 Pack-years: 50 Smoking risk assessment performed?: Yes Alcohol Intake: current Alcohol Intake frequency: holidays/special occasions only Drug use: Socially Substance use type: marijuana Adopted: No Caregiver/Support person: Yes (Spouse) Foster care: No Household members: spouse Housing: apartment Number of Children: 1 number of grandchildren: 0 Communication Needs: Hard of Hearing Education Level: college Do you need help understanding health information?: Often current occupation: Retired Pets and animals: Yes (Emotional support cat) Pets and animals: cat(s) Sexually active: No Do you think of yourself as: straight/heterosexual Current gender identity: male What is your relationship status?: How often do you talk on the phone with friends or family?: once per week How often do you get together with friends or relatives?: decline to answer Do you belong to any clubs or organized social groups?: no Panel score (0-1 are the most socially isolated patients): 1 What type of physical activity do you participate in: none Duration: < 15 minutes/day Cassandra/Denominational: Rastafari Special cassandra needs: No Seatbelt use: always Drive intox 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
[2024-04-14 11:27] VITALS: BP 115/94; PULSE 66; RESP 16; O2SAT 97
[2024-04-14 11:33] VITALS: BP 99/56; PULSE 64; RESP 16; O2SAT 98
== END 2024-04-14 11:33 | disposition home or self-care (01) ==
PROVIDERS: Emergency Provider Emergency Medicine; PCP Family Medicine
DX: R68.84 Jaw pain (principal); C90.00 Multiple myeloma not having achieved remission; J44.9 Chronic obstructive pulmonary disease, unspecified; G20.A1 Parkinson's disease without dyskinesia, without mention of fluctuations; Z79.82 Long term (current) use of aspirin; Z87.891 Personal history of nicotine dependence
CPT/HCPCS: 99283

== ENCOUNTER 2024-04-24 13:26 | Outpatient (CLI) | payer MEDICARE, SELFPAY ==
[2024-04-24 12:25] LABS: Abs Immature Grans 0.02 10^3/uL (0.0-0.06); Absolute Basophil Count 0.11 10^3/uL (0.0-0.2); Absolute Eosinophil Count 0.44 10^3/uL (0.0-0.7); Absolute Lymphocyte Count 1.16 10^3/uL (1.2-3.4); Absolute Monocyte Count 0.99 10^3/uL (0.1-0.8); Absolute Neutrophil Count 3.91 10^3/uL (1.2-6.7); Basophils % 1.7 %; Eosinophils % 6.6 %; HCT 34.3 % (40.0-50.0); HGB 11.2 g/dL (13.5-17.5); Immature Grans % 0.3 %; Lymphocytes % 17.5 %; MCH 31.6 pg (27.0-33.0); MCHC 32.7 % (32.0-36.0); MCV 97 fL (80-95); MPV 10.1 fL (8.0-11.0); Monocytes % 14.9 %; Platelet Count 374 10^3/uL (130-400); RBC 3.54 10^6/uL (4.36-5.78); RDW 15.9 % (11.8-14.1); WBC 6.63 10^3/uL (4.4-10.8)
[2024-04-24 12:40] LABS: ALT 11 U/L (16-63); AST 11 U/L (15-37); Albumin 3.1 g/dL (3.4-5.0); Alkaline Phosphatase 63 U/L (46-116); Anion Gap 8.9 mmol/L (3-11); BUN 30 mg/dL (7-18); CO2 26.1 mmol/L (21.0-32.0); CREATININE 1.2 mg/dL (0.70-1.30); Chloride 106 mmol/L (98-107); Estimated GFR 63.46 (mL/min/1.73m2); Glucose 110 mg/dL (74-106); Potassium 3.9 mmol/L (3.5-5.1); Sodium 141 mmol/L (136-145); Total Protein 6.6 g/dL (6.4-8.2)
[2024-04-25 08:24] LABS: IgA 95 mg/dL (85-499); IgG 445 mg/dL (610-1616); IgM 57 mg/dL (35-242); Kappa Free Light Chain 2.24 mg/dL (0.33-1.94); Lambda Free Light Chain 1.85 mg/dL (0.57-2.63)
[2024-04-25 15:11] LABS: Albumin g/dL 3.3 g/dL (3.6-5.2); Comment (See Note); Total Protein 5.9 g/dL (6.3-8.2)
[2024-04-25 17:25] LABS: Immunotyping, Serum (See Note)
== END 2024-04-24 13:27 | disposition home or self-care (01) ==
LOC: LBO 13:26
PROVIDERS: PCP Family Medicine; Visit Provider Nurse Practitioner Family
DX: C90.00 Multiple myeloma not having achieved remission (principal)
CPT/HCPCS: 36415; 80053; 82784; 83883; 84165; 85025; 86320

== ENCOUNTER 2024-05-16 12:01 | Outpatient (CLI) | payer MEDICARE, SELFPAY ==
[2024-05-16 11:48] LABS: Abs Immature Grans 0.02 10^3/uL (0.0-0.06); Absolute Basophil Count 0.05 10^3/uL (0.0-0.2); Absolute Eosinophil Count 0.23 10^3/uL (0.0-0.7); Absolute Lymphocyte Count 1.45 10^3/uL (1.2-3.4); Absolute Monocyte Count 0.86 10^3/uL (0.1-0.8); Absolute Neutrophil Count 4.64 10^3/uL (1.2-6.7); Basophils % 0.7 %; Eosinophils % 3.2 %; HCT 39.6 % (40.0-50.0); HGB 12.8 g/dL (13.5-17.5); Immature Grans % 0.3 %; MCH 31.3 pg (27.0-33.0); MCHC 32.3 % (32.0-36.0); MCV 97 fL (80-95); Monocytes % 11.9 %; Neutrophils % 63.9 %; Platelet Count 210 10^3/uL (130-400); RBC 4.09 10^6/uL (4.36-5.78); RDW 15.9 % (11.8-14.1); RDW-SD 56.9 fL; WBC 7.25 10^3/uL (4.4-10.8)
[2024-05-16 12:08] LABS: ALT 11 U/L (16-63); AST 9 U/L (15-37); Albumin 3.6 g/dL (3.4-5.0); Alkaline Phosphatase 87 U/L (46-116); Anion Gap 12.4 mmol/L (3-11); BUN 27 mg/dL (7-18); Bilirubin, Total 0.28 mg/dL (0.2-1.0); CO2 22.6 mmol/L (21.0-32.0); Calcium 8.2 mg/dL (8.5-10.1); Chloride 109 mmol/L (98-107); Estimated GFR 78.98 (mL/min/1.73m2); Glucose 77 mg/dL (74-106); LDH 156 U/L (85-227); Potassium 3.8 mmol/L (3.5-5.1); Sodium 144 mmol/L (136-145); Total Protein 7.1 g/dL (6.4-8.2)
[2024-05-19 10:25] LABS: IgA 109 mg/dL (85-499); IgG 567 mg/dL (610-1616); IgM 37 mg/dL (35-242); Kappa Free Light Chain 1.72 mg/dL (0.33-1.94)
[2024-05-19 15:45] LABS: Albumin 61.4 % (55.8-66.1); Albumin g/dL 4.1 g/dL (3.6-5.2); Comment (See Note); Total Protein 6.6 g/dL (6.3-8.2)
[2024-06-27 10:05] LABS: Immunotyping, Serum (See Note)
== END 2024-05-16 12:02 | disposition home or self-care (01) ==
LOC: LBO 12:02
PROVIDERS: PCP Family Medicine; Visit Provider Nurse Practitioner Family
DX: C90.00 Multiple myeloma not having achieved remission (principal)
CPT/HCPCS: 36415; 80053; 82784; 83615; 83883; 84165; 85025; 86320

== ENCOUNTER 2024-06-12 10:12 | Outpatient (CLI) | payer MEDICARE, SELFPAY ==
[2024-06-12 11:05] LABS: Abs Immature Grans 0.04 10^3/uL (0.0-0.06); Absolute Basophil Count 0.02 10^3/uL (0.0-0.2); Absolute Eosinophil Count 0.27 10^3/uL (0.0-0.7); Absolute Lymphocyte Count 1.55 10^3/uL (1.2-3.4); Absolute Monocyte Count 0.84 10^3/uL (0.1-0.8); Absolute Neutrophil Count 2.34 10^3/uL (1.2-6.7); Basophils % 0.4 %; Eosinophils % 5.3 %; HCT 36.7 % (40.0-50.0); HGB 11.7 g/dL (13.5-17.5); Immature Grans % 0.8 %; Lymphocytes % 30.6 %; MCHC 31.9 % (32.0-36.0); MCV 97 fL (80-95); Monocytes % 16.6 %; Neutrophils % 46.3 %; Platelet Count 213 10^3/uL (130-400); RBC 3.77 10^6/uL (4.36-5.78); RDW 14.8 % (11.8-14.1); RDW-SD 53.3 fL; WBC 5.06 10^3/uL (4.4-10.8)
[2024-06-12 11:23] LABS: ALT 11 U/L (16-63); AST 11 U/L (15-37); Albumin 3.1 g/dL (3.4-5.0); Alkaline Phosphatase 44 U/L (46-116); Anion Gap 8.9 mmol/L (3-11); BUN 29 mg/dL (7-18); Bilirubin, Total 0.43 mg/dL (0.2-1.0); CO2 24.1 mmol/L (21.0-32.0); CREATININE 1.2 mg/dL (0.70-1.30); Calcium 8.9 mg/dL (8.5-10.1); Chloride 109 mmol/L (98-107); Estimated GFR 63.46 (mL/min/1.73m2); Glucose 98 mg/dL (74-106); LDH 150 U/L (85-227); Potassium 3.8 mmol/L (3.5-5.1); Sodium 142 mmol/L (136-145); Total Protein 6.2 g/dL (6.4-8.2)
[2024-06-13 08:53] LABS: IgA 130 mg/dL (85-499); IgG 540 mg/dL (610-1616); IgM 23 mg/dL (35-242); Kappa Free Light Chain 4.17 mg/dL (0.33-1.94); Lambda Free Light Chain 2.49 mg/dL (0.57-2.63)
[2024-06-16 15:16] LABS: Albumin g/dL 3.5 g/dL (3.6-5.2); Comment (See Note); Total Protein 5.8 g/dL (6.3-8.2)
[2024-06-17 08:21] LABS: Immunotyping, Serum (See Note)
== END 2024-06-12 10:13 | disposition home or self-care (01) ==
LOC: LBO 10:12
PROVIDERS: PCP Family Medicine; Visit Provider Nurse Practitioner Family
DX: C90.00 Multiple myeloma not having achieved remission (principal)
CPT/HCPCS: 36415; 80053; 82784; 83615; 83883; 84165; 85025; 86320

== ENCOUNTER 2024-07-10 03:31 | Outpatient (CLI) | payer MEDICARE, SELFPAY ==
[2024-07-10 10:54] LABS: Abs Immature Grans 0.04 10^3/uL (0.0-0.06); Absolute Basophil Count 0.06 10^3/uL (0.0-0.2); Absolute Eosinophil Count 1.02 10^3/uL (0.0-0.7); Absolute Lymphocyte Count 1.83 10^3/uL (1.2-3.4); Absolute Monocyte Count 1.12 10^3/uL (0.1-0.8); Basophils % 0.7 %; Eosinophils % 11.9 %; HCT 39.7 % (40.0-50.0); HGB 12.9 g/dL (13.5-17.5); Immature Grans % 0.5 %; Lymphocytes % 21.4 %; MCH 31.5 pg (27.0-33.0); MCHC 32.5 % (32.0-36.0); MCV 97 fL (80-95); MPV 10.8 fL (8.0-11.0); Monocytes % 13.1 %; Neutrophils % 52.4 %; Platelet Count 192 10^3/uL (130-400); RBC 4.09 10^6/uL (4.36-5.78); RDW 14.6 % (11.8-14.1); RDW-SD 51.7 fL; WBC 8.57 10^3/uL (4.4-10.8)
[2024-07-10 11:17] LABS: ALT 11 U/L (16-63); AST 27 U/L (15-37); Albumin 3.5 g/dL (3.4-5.0); Alkaline Phosphatase 58 U/L (46-116); Anion Gap 6.9 mmol/L (3-11); BUN 33 mg/dL (7-18); Bilirubin, Total 0.47 mg/dL (0.2-1.0); CO2 27.1 mmol/L (21.0-32.0); CREATININE 1.2 mg/dL (0.70-1.30); Calcium 8.9 mg/dL (8.5-10.1); Chloride 106 mmol/L (98-107); Estimated GFR 63.46 (mL/min/1.73m2); Glucose 99 mg/dL (74-106); Potassium 3.9 mmol/L (3.5-5.1); Sodium 140 mmol/L (136-145); Total Protein 6.9 g/dL (6.4-8.2)
[2024-07-11 09:30] LABS: IgA 203 mg/dL (85-499); IgG 684 mg/dL (610-1616); IgM 32 mg/dL (35-242); Kappa Free Light Chain 4.43 mg/dL (0.33-1.94); Lambda Free Light Chain 2.61 mg/dL (0.57-2.63)
[2024-07-11 13:19] LABS: Albumin 61.5 % (55.8-66.1); Total Protein 6.5 g/dL (6.3-8.2)
== END 2024-07-10 03:32 | disposition home or self-care (01) ==
PROVIDERS: PCP Family Medicine; Visit Provider Nurse Practitioner Family
DX: C90.00 Multiple myeloma not having achieved remission (principal)
CPT/HCPCS: 36415; 80053; 82784; 83883; 84165; 85025

== ENCOUNTER 2024-08-18 02:30 | Outpatient (CLI) | payer MEDICARE, SELFPAY ==
[2024-08-18 08:33] LABS: Abs Immature Grans 0.02 10^3/uL (0.0-0.06); Absolute Basophil Count 0.05 10^3/uL (0.0-0.2); Absolute Eosinophil Count 0.72 10^3/uL (0.0-0.7); Absolute Lymphocyte Count 2.68 10^3/uL (1.2-3.4); Absolute Monocyte Count 0.57 10^3/uL (0.1-0.8); Absolute Neutrophil Count 1.69 10^3/uL (1.2-6.7); Basophils % 0.9 %; Eosinophils % 12.6 %; HCT 40.3 % (40.0-50.0); HGB 13.1 g/dL (13.5-17.5); Immature Grans % 0.3 %; Lymphocytes % 46.8 %; MCH 31.5 pg (27.0-33.0); MCHC 32.5 % (32.0-36.0); MCV 97 fL (80-95); MPV 10.5 fL (8.0-11.0); Monocytes % 9.9 %; Neutrophils % 29.5 %; Platelet Count 204 10^3/uL (130-400); RBC 4.16 10^6/uL (4.36-5.78); RDW 13.6 % (11.8-14.1); RDW-SD 48.8 fL; WBC 5.73 10^3/uL (4.4-10.8)
[2024-08-18 08:56] LABS: ALT 17 U/L (16-63); AST 19 U/L (15-37); Albumin 3.6 g/dL (3.4-5.0); Alkaline Phosphatase 75 U/L (46-116); Anion Gap 11.8 mmol/L (3-11); BUN 35 mg/dL (7-18); Bilirubin, Total 0.21 mg/dL (0.2-1.0); CO2 25.2 mmol/L (21.0-32.0); CREATININE 1.3 mg/dL (0.70-1.30); Calcium 9.1 mg/dL (8.5-10.1); Chloride 108 mmol/L (98-107); Estimated GFR 57.29 (mL/min/1.73m2); Glucose 135 mg/dL (74-106); Potassium 3.7 mmol/L (3.5-5.1); Sodium 145 mmol/L (136-145); Total Protein 7.5 g/dL (6.4-8.2)
[2024-08-19 10:07] LABS: IgA 262 mg/dL (85-499); IgG 991 mg/dL (610-1616); IgM 33 mg/dL (35-242); Kappa Free Light Chain 4.59 mg/dL (0.33-1.94); Lambda Free Light Chain 2.58 mg/dL (0.57-2.63)
[2024-08-19 13:11] LABS: Albumin 60.6 % (55.8-66.1); Albumin g/dL 4.2 g/dL (3.6-5.2)
== END 2024-08-18 02:31 | disposition home or self-care (01) ==
PROVIDERS: PCP Family Medicine; Visit Provider Nurse Practitioner Family
DX: C90.00 Multiple myeloma not having achieved remission (principal)
CPT/HCPCS: 36415; 80053; 82784; 83883; 84165; 85025

== ENCOUNTER → 2024-09-30 12:33 | Outpatient (BNVA) | payer MEDICARE, SELFPAY | PROVIDERS: PCP Family Medicine; Referring Provider Family Medicine; Visit Provider Physician Assistant Surgical | DX: J44.9 Chronic obstructive pulmonary disease, unspecified (principal); Z87.891 Personal history of nicotine dependence | CPT/HCPCS: 99214 ==

== ENCOUNTER 2024-10-13 01:11 | Outpatient (CLI) | payer MEDICARE, SELFPAY ==
--- NOTE | 2024-10-13 08:45 | DI.US_ITS ---
APPROVED REPORT EXAM: Comprehensive 2D, Doppler, and color-flow Echocardiogram Patient Location: Out-Patient Nick Setter: Chucky Avelar RDCS (AE) Indications: Dyspnea, pulmonary HTN Other Information Study Quality: Adequate Conclusion Normal left ventricular wall thickness and chamber size. EF is 65%. Wall motion is normal Normal right ventricular size and function Both atria are normal in size Aortic valve is mildly sclerotic and trileaflet without stenosis or regurgitation Estimated right ventricular systolic pressure is 24 mmHg Wall motion Left Ventricle The left ventricle is normal size. The left ventricular systolic function is normal. The left ventric ular ejection fraction is within the normal range. There is normal left ventricular wall thickness. T here is normal LV segmental wall motion. There is no ventricular septal defect visualized. LVEF is 65 %. Right Ventricle The right ventricle is normal size. The right ventricular systolic function is normal. Atria The left atrium size is normal. The right atrium size is normal. The interatrial septum is intact wit h no evidence for an atrial septal defect. Aortic Valve The aortic valve is mildly sclerotic Aortic valve is trileaflet. There is no aortic valvular stenosis . No aortic regurgitation is present. Mitral Valve The mitral valve is normal in structure. No evidence of mitral valve stenosis. Trace mitral regurgita tion. Tricuspid Valve The tricuspid valve is normal in structure. There is no tricuspid valve stenosis. Trace to mild tricu spid regurgitation. The RVSP is 23.8 mmHg. Pulmonic Valve The pulmonary valve is normal in structure. There is no pulmonic valvular stenosis. There is no pulmo yjotsna valvular regurgitation. Great Vessels The aortic root is normal in size. Ascending aorta is not well visualized. Aortic arch is not well vi sualized. IVC is normal in size and collapses >50% with inspiration. Pericardium There is no pericardial effusion. 2D Dimensions IVSD d PLAX 0.48 cm M: 0.6-1.2 Ao Root d 2.60 cm M: 3.1 - 3.7 LVPW d PLAX 0.57 cm M: 0.6 - 1.2 LVID d PLAX 4.91 cm M: 4.2 - 5.8 LVDs 3.17 cm M: 2.5 - 4.0 LV EF Teichholz 64.6 % FS 35.41 % LV EDV (Teich) 113.2 mL LV ESV (Teich) 40.0 mL Stroke Vol Index (Teich) 36.77 M-Mode TAPSE 2.54 cm (M/F) >1.7 Auto EF LV EDV A4C 116.0 mL LV EDV A2C 79.0 mL LV EDV BP 95.9 mL LV ESV A4C 39.8 mL LV ESV A2C 29.2 mL LV ESV BP 33.6 mL LVEF(%) A4C 65.7 % LVEF(%) A2C 63.0 % LVEF(%) BP 65.0 % LV SV A4C 76.2 ml LV SV A2C 49.8 ml LV SV BP 62.3 ml LV CO A4C 4.3 L/min LV CO A2C 2.8 L/min LV CO BP 3.5 L/min HR A4C 56.34 BPM HR A2C 55.64 BPM LV EDV Index (BP) LA Volume LA Length A4C 3.5 cm LA Length A2C 5.2 cm LA Area A4C s 9.87 cm2 LA Area A2C s 15.36 cm2 LA Vol A4C A-L 23.31 mL LA Vol A2C A-L 38.63 mL LA Vol Biplane A-L 36.3 mL LA Vol/BSA A4C A-L LA Vol/BSA A2C A-L LA Vol/BSA BP A-L 18.2 mL/m2 LA Vol A4C MOD 22.1 mL LA Vol A2C MOD 34.4 mL LA Vol BP MOD 32.8 mL RA Volume RA Area A4C 10.9 cm2 RA ESV A4C (A-L) 30.2mL RA Vol/BSA A4C A-L RA Length A4C 3.4 cm RA ESV A4C (MOD) 27.8mL LV Diastology MV E' medial 0.090 (>0.07 m/s) MV E Vmax 0.53 (0.4-1.3 m/s) MV E/E' MED 5.91 (<14) MV A Vmax 0.65 (0.4-1.3 m/s) MV E' lateral 0.070 (>0.1 m/s) E/A Ratio 0.8 MV E/E' LAT 7.57 (<14) MV E' Average 0.080 m/s MV E/E'(average) 6.64 Aortic Valve AoV Vmax 1.11 m/s LVOT Vmax 0.96 m/s AoV Peak Grad 4.9 mmHg LVOT Peak Grad 3.7 mmHg AoV Area (Vmax) 2.74 cm2 LVOT VTI 0.214 m AoV VTI 0.261 m LVOT Mean Grad 1.7 mmHg AoV Mean Sacha. 0.76 m/s LVOT SV 67.52 mL AoV Mean Grad 2.6 mmHg LVOT Diam s 2.00 cm AoV Area (VTI) 2.59 cm2 AV Regurg Peak Gr. 4.93 mmHg Velocity Ratio 0.86 Mitral Valve MV DT 261 (160-240 msec) Pulmonary Valve PV Vmax 0.84 (0.5-1.5 m/s) RVOT Vmax 0.68 m/s PV Peak Grad 2.8 mmHg RVOT Peak Gr. 1.8 mmHg PV Mean Sacha 0.62 m/s RVOT VTI 0.131 m PV Mean Grad 1.7 mmHg RVOT Mean Gr. 0.8 mmHg Tricuspid Valve RA Pressure 3.00 mmHg TR Vmax 2.28 m/s TR Peak Grad 20.8 mmHg RVSP (TR) 23.8 mmHg
== END 2024-10-13 01:31 ==
LOC: DI 01:11
PROVIDERS: PCP Family Medicine; Visit Provider Physician Assistant Surgical
DX: I27.20 Pulmonary hypertension, unspecified (principal)
CPT/HCPCS: 93016; 93306

== ENCOUNTER 2024-11-12 03:17 | Outpatient (CLI) | payer MEDICARE, SELFPAY ==
[2024-11-12 08:39] LABS: Abs Immature Grans 0.02 10^3/uL (0.0-0.06); Absolute Basophil Count 0.04 10^3/uL (0.0-0.2); Absolute Eosinophil Count 0.67 10^3/uL (0.0-0.7); Absolute Lymphocyte Count 2.46 10^3/uL (1.2-3.4); Absolute Monocyte Count 0.69 10^3/uL (0.1-0.8); Absolute Neutrophil Count 1.94 10^3/uL (1.2-6.7); Basophils % 0.7 %; Eosinophils % 11.5 %; HCT 39.7 % (40.0-50.0); HGB 12.9 g/dL (13.5-17.5); Immature Grans % 0.3 %; Lymphocytes % 42.3 %; MCH 30.9 pg (27.0-33.0); MCHC 32.5 % (32.0-36.0); MCV 95 fL (80-95); MPV 10.5 fL (8.0-11.0); Monocytes % 11.9 %; Neutrophils % 33.3 %; Platelet Count 183 10^3/uL (130-400); RBC 4.18 10^6/uL (4.36-5.78); RDW 13.4 % (11.8-14.1); WBC 5.82 10^3/uL (4.4-10.8)
[2024-11-12 08:55] LABS: ALT 11 U/L (16-63); AST 18 U/L (15-37); Albumin 3.3 g/dL (3.4-5.0); Alkaline Phosphatase 97 U/L (46-116); BUN 25 mg/dL (7-18); Bilirubin, Total 0.21 mg/dL (0.2-1.0); CREATININE 1.2 mg/dL (0.70-1.30); Calcium 7.9 mg/dL (8.5-10.1); Chloride 108 mmol/L (98-107); Estimated GFR 63.07 (mL/min/1.73m2); Glucose 105 mg/dL (74-106); Potassium 3.7 mmol/L (3.5-5.1); Sodium 142 mmol/L (136-145); Total Protein 7.3 g/dL (6.4-8.2)
[2024-11-13 08:40] LABS: IgA 253 mg/dL (85-499); IgG 1172 mg/dL (610-1616); IgM 35 mg/dL (35-242); Kappa Free Light Chain 7.11 mg/dL (0.33-1.94); Lambda Free Light Chain 3.61 mg/dL (0.57-2.63)
[2024-11-13 15:38] LABS: Albumin 56.7 % (55.8-66.1); Albumin g/dL 3.9 g/dL (3.6-5.2); Comment (See Note); Total Protein 6.9 g/dL (6.3-8.2)
[2024-12-19 15:45] LABS: Immunotyping, Serum (See Note)
== END 2024-11-12 03:18 | disposition home or self-care (01) ==
PROVIDERS: PCP Family Medicine; Visit Provider Nurse Practitioner Family
DX: C90.00 Multiple myeloma not having achieved remission (principal)
CPT/HCPCS: 36415; 80053; 82784; 83883; 84165; 85025; 86320

== ENCOUNTER → 2024-12-03 09:50 | Outpatient (BNVA) | payer MEDICARE, SELFPAY | PROVIDERS: PCP Family Medicine; Referring Provider Family Medicine; Visit Provider Psychiatry & Neurology Neurology | DX: G20.A1 Parkinson's disease without dyskinesia, without mention of fluctuations (principal); G47.00 Insomnia, unspecified; K59.00 Constipation, unspecified; R41.3 Other amnesia; G62.9 Polyneuropathy, unspecified | CPT/HCPCS: 99215; G2212 ==

== ENCOUNTER 2025-01-13 00:20 | Outpatient (CLI) | payer MEDICARE, SELFPAY ==
--- NOTE | 2025-01-13 07:30 | DI.CTLCSR_ITS ---
Exam(s) CT CHEST LUNG CANCER SCREEN EXAM: CT CHEST LUNG CANCER SCREEN CLINICAL HISTORY: Screening for lung cancer,former smoker, z87.891 TECHNIQUE: Imaging Protocol: Axial computed tomography images with coronal and sagittal reformatted images were created and reviewed. Lung Computer Aided Detection (CAD) was utilized. FINDINGS: Tracheobronchial tree: Patent where visualized. No bronchiectasis. Pulmonary parenchyma: Mild centrilobular emphysematous changes are present. There is scarring in the lung bases bilaterally. No focal consolidating infiltrates are present. Lung Nodules: There are few scattered noncalcified pulmonary nodules. The largest is in the right lo wer lobe and measures 4 mm. (Series 2, image 65). Mediastinum and Zaynab: No dominant adenopathy or fluid collection. The esophagus is unremarkable.There is a small hiatal hernia. Thyroid gland: Unremarkable. Lymph nodes: Unremarkable. Pleura: No effusion or pneumothorax. Heart: The heart is not dilated. Mild single-vessel coronary artery calcification is present. There is a small pericardial effusion. Aorta: Thoracic aorta non-dilated.Atherosclerotic calcification is present. Upper abdomen: There are multiple well-circumscribed hypodense lesions in the liver consistent with cysts. These are present on the CT scan from 11/29/2023. Soft Tissues: Mild gynecomastia bilaterally. Bones: There are multiple lytic lesions seen in the bones consistent with the patient's history of mu ltiple myeloma. Old rib fractures are seen. There is a compression deformity of T5. This appears t o been little T6 on the PET-CT scan. There is also now mild compression of the T8 vertebral body. IMPRESSION: 1. Pulmonary nodules. The largest is seen in the right lower lobe measures 4 mm. 2. Multiple lytic lesions in the bones consistent with the patient's history of myeloma. Old amy ulisses deformity of T5. Mild compression of T8. 3. Multiple hypodense lesions in the liver consistent with cysts. 4. Mild centrilobular emphysema. Lung RADS Cat 3 - Probably Benign: Probably benign finding(s) - short term follow-up suggested; inclu de nodules with a low likelihood of becoming a clinically active cancer. Lung-RADS 1.0 CATEGORIES: Category 0 - Prior chest CT exam(s) being located for comparison. Category 1 - Annual screening in 12 months. No nodules or definitely benign nodules. Category 2 - Annual screening in 12 months. Benign appearance. Nodules with low likelihood of becomin g active cancer. Category 3 - 6-month follow-up. Probably benign. Short-term follow-up suggested. Nodules with low lik elihood of becoming active cancer. Category 4A - 3-month follow-up and CT/PET if >8 mm in size. Suspicious finding. Findings which requi re additional testing. Category 4B - Findings which require additional testing and tissue sampling. Suspicious finding. Category 4X - Category 3 or 4 nodules with additional features or imaging findings that increases the suspicion of malignancy. Modifier S- Potentially clinically significant finding. (Non lung cancer) Unexpected findings RADIATION DOSE DELIVERED: 32.38mGy.cm Total DLP 32.38mGy.cmTotal DLP DATA REPOSITORY: All CT scans at this facility are submitted to the National Radiology Data Registry (NRDR) Dose Index Registry (DIR) with the [employer] (ACR). RADIATION OPTIMIZATION: All CT scans at this facility use at least one of these dose optimization te chniques: automated exposure control; mA and/or kV adjustment per patient size (includes targeted exa ms where dose is matched to clinical indication); or iterative reconstruction.
== END 2025-01-13 00:40 ==
LOC: DI 00:20
PROVIDERS: PCP Family Medicine; Visit Provider Physician Assistant Surgical
DX: Z87.891 Personal history of nicotine dependence (principal); Z12.2 Encounter for screening for malignant neoplasm of respiratory organs; R91.8 Other nonspecific abnormal finding of lung field; J43.2 Centrilobular emphysema
CPT/HCPCS: 71271

== ENCOUNTER → 2025-01-28 10:52 | Outpatient (BNVA) | payer MEDICARE, SELFPAY | PROVIDERS: PCP Family Medicine; Referring Provider Family Medicine; Visit Provider Psychiatry & Neurology Neurology | DX: G20.A1 Parkinson's disease without dyskinesia, without mention of fluctuations (principal); G47.00 Insomnia, unspecified; K59.00 Constipation, unspecified; R41.3 Other amnesia; G62.9 Polyneuropathy, unspecified | CPT/HCPCS: 99215 ==

== ENCOUNTER 2025-02-11 02:20 | Outpatient (CLI) | payer MEDICARE, SELFPAY ==
[2025-02-11 10:20] LABS: Abs Immature Grans 0.01 10^3/uL (0.0-0.06); Absolute Basophil Count 0.11 10^3/uL (0.0-0.2); Absolute Eosinophil Count 0.61 10^3/uL (0.0-0.7); Absolute Lymphocyte Count 1.61 10^3/uL (1.2-3.4); Absolute Monocyte Count 0.59 10^3/uL (0.1-0.8); Basophils % 2.1 %; Eosinophils % 11.7 %; HCT 42.4 % (40.0-50.0); HGB 13.7 g/dL (13.5-17.5); Immature Grans % 0.2 %; Lymphocytes % 30.8 %; MCHC 32.3 % (32.0-36.0); MCV 96 fL (80-95); MPV 9.7 fL (8.0-11.0); Monocytes % 11.3 %; Neutrophils % 43.9 %; Platelet Count 222 10^3/uL (130-400); RBC 4.42 10^6/uL (4.36-5.78); RDW 13.8 % (11.8-14.1); RDW-SD 49.1 fL; WBC 5.23 10^3/uL (4.4-10.8)
[2025-02-11 10:34] LABS: Hemoglobin A1C 5.9 % (<5.7)
[2025-02-11 10:40] LABS: ALT 14 U/L (16-63); AST 15 U/L (15-37); Albumin 3.6 g/dL (3.4-5.0); Alkaline Phosphatase 75 U/L (46-116); Anion Gap 9.1 mmol/L (3-11); BUN 35 mg/dL (7-18); Bilirubin, Total 0.4 mg/dL (0.2-1.0); CO2 25.9 mmol/L (21.0-32.0); CREATININE 1.7 mg/dL (0.70-1.30); Calcium 9.3 mg/dL (8.5-10.1); Chloride 110 mmol/L (98-107); Estimated GFR 41.52 (mL/min/1.73m2); Glucose 85 mg/dL (74-106); Potassium 3.6 mmol/L (3.5-5.1); Sodium 145 mmol/L (136-145); Total Protein 7.2 g/dL (6.4-8.2)
[2025-02-11 11:08] LABS: TSH (W/Ref FT4) 9.33 uIU/mL (0.36-3.74); Vitamin B12 340 pg/mL (193-986)
[2025-02-11 11:27] LABS: FREE T4 0.89 ng/dL (0.76-1.46)
[2025-02-12 09:19] LABS: IgA 218 mg/dL (85-499); IgG 818 mg/dL (610-1616); IgM 33 mg/dL (35-242); Kappa Free Light Chain 4.49 mg/dL (0.33-1.94); Lambda Free Light Chain 1.55 mg/dL (0.57-2.63)
[2025-02-12 13:28] LABS: Albumin 59.5 % (55.8-66.1); Total Protein 6.8 g/dL (6.3-8.2)
== END 2025-02-11 02:21 | disposition home or self-care (01) ==
PROVIDERS: Psychiatry & Neurology Neurology; PCP Family Medicine; Visit Provider Internal Medicine Hematology & Oncology
DX: E03.9 Hypothyroidism, unspecified (principal); G62.9 Polyneuropathy, unspecified; R73.9 Hyperglycemia, unspecified; C90.01 Multiple myeloma in remission
CPT/HCPCS: 36415; 80053; 82784; 82607; 83036; 83883; 84165; 84439; 84443; 85025

== ENCOUNTER → 2025-03-31 10:03 | Outpatient (BNVA) | payer MEDICARE, SELFPAY | PROVIDERS: PCP Family Medicine; Referring Provider Family Medicine; Visit Provider Physician Assistant Surgical | DX: J44.9 Chronic obstructive pulmonary disease, unspecified (principal); G20.C Parkinsonism, unspecified; C90.00 Multiple myeloma not having achieved remission; Z87.891 Personal history of nicotine dependence | CPT/HCPCS: 99214 ==

== ENCOUNTER 2025-04-02 10:27 | Outpatient (CLI) | payer MEDICARE, SELFPAY ==
[2025-04-02 10:48] LABS: Abs Immature Grans 0.01 10^3/uL (0.0-0.06); Absolute Basophil Count 0.04 10^3/uL (0.0-0.2); Absolute Eosinophil Count 0.26 10^3/uL (0.0-0.7); Absolute Lymphocyte Count 1.83 10^3/uL (1.2-3.4); Absolute Monocyte Count 0.66 10^3/uL (0.1-0.8); Absolute Neutrophil Count 3.43 10^3/uL (1.2-6.7); Basophils % 0.6 %; Eosinophils % 4.2 %; HGB 12.6 g/dL (13.5-17.5); Immature Grans % 0.2 %; Lymphocytes % 29.4 %; MCH 30.2 pg (27.0-33.0); MCHC 31.5 % (32.0-36.0); MCV 96 fL (80-95); MPV 10.2 fL (8.0-11.0); Monocytes % 10.6 %; Platelet Count 165 10^3/uL (130-400); RBC 4.17 10^6/uL (4.36-5.78); RDW 14.3 % (11.8-14.1); RDW-SD 50.4 fL; WBC 6.23 10^3/uL (4.4-10.8)
[2025-04-02 11:03] LABS: ALT 9 U/L (16-63); AST 14 U/L (15-37); Albumin 3.9 g/dL (3.4-5.0); Alkaline Phosphatase 88 U/L (46-116); Anion Gap 11.7 mmol/L (3-11); BUN 45 mg/dL (7-18); Bilirubin, Total 0.3 mg/dL (0.2-1.0); CO2 25.3 mmol/L (21.0-32.0); CREATININE 1.5 mg/dL (0.70-1.30); Calcium 9.2 mg/dL (8.5-10.1); Chloride 106 mmol/L (98-107); Estimated GFR 48.25 (mL/min/1.73m2); Glucose 80 mg/dL (74-106); Potassium 4.1 mmol/L (3.5-5.1); Sodium 143 mmol/L (136-145); Total Protein 7.2 g/dL (6.4-8.2)
[2025-04-03 09:22] LABS: IgA 194 mg/dL (85-499); IgG 698 mg/dL (610-1616); IgM 33 mg/dL (35-242); Kappa Free Light Chain 5.34 mg/dL (0.33-1.94); Lambda Free Light Chain 1.12 mg/dL (0.57-2.63)
[2025-04-03 12:53] LABS: Albumin 63.1 % (55.8-66.1); Albumin g/dL 4.2 g/dL (3.6-5.2); Total Protein 6.7 g/dL (6.3-8.2)
== END 2025-04-02 10:28 | disposition home or self-care (01) ==
LOC: LBO 10:28
PROVIDERS: PCP Family Medicine; Visit Provider Internal Medicine Hematology & Oncology
DX: C90.01 Multiple myeloma in remission (principal)
CPT/HCPCS: 36415; 80053; 82784; 83883; 84165; 85025

== ENCOUNTER → 2025-05-04 14:44 | Outpatient (BNVA) | payer MEDICARE, SELFPAY | PROVIDERS: PCP Family Medicine; Referring Provider Family Medicine; Visit Provider Psychiatry & Neurology Neurology | DX: G20.A1 Parkinson's disease without dyskinesia, without mention of fluctuations (principal); G47.00 Insomnia, unspecified; K59.00 Constipation, unspecified; R41.3 Other amnesia; G62.9 Polyneuropathy, unspecified; I95.1 Orthostatic hypotension; J44.9 Chronic obstructive pulmonary disease, unspecified; N18.9 Chronic kidney disease, unspecified | CPT/HCPCS: 99214 ==

== ENCOUNTER 2025-05-27 03:57 | Outpatient (CLI) | payer MEDICARE, SELFPAY ==
[2025-05-27 11:55] LABS: Abs Immature Grans 0.74 10^3/uL (0.0-0.06); HCT 38.9 % (40.0-50.0); HGB 12.9 g/dL (13.5-17.5); MCH 31.2 pg (27.0-33.0); MCHC 33.2 % (32.0-36.0); MCV 94 fL (80-95); MPV 10.5 fL (8.0-11.0); Platelet Count 180 10^3/uL (130-400); RBC 4.13 10^6/uL (4.36-5.78); RDW 13.9 % (11.8-14.1); RDW-SD 48.8 fL; WBC 7.09 10^3/uL (4.4-10.8)
[2025-05-27 12:06] LABS: ALT 13 U/L (16-63); AST 15 U/L (15-37); Albumin 3.8 g/dL (3.4-5.0); Alkaline Phosphatase 82 U/L (46-116); Anion Gap 8.4 mmol/L (3-11); BUN 34 mg/dL (7-18); Bilirubin, Total 0.3 mg/dL (0.2-1.0); CO2 27.6 mmol/L (21.0-32.0); Calcium 9.2 mg/dL (8.5-10.1); Chloride 105 mmol/L (98-107); Estimated GFR 63.07 (mL/min/1.73m2); Glucose 79 mg/dL (74-106); Potassium 4.1 mmol/L (3.5-5.1); Sodium 141 mmol/L (136-145); Total Protein 7.2 g/dL (6.4-8.2)
[2025-05-27 13:08] LABS: RBC Morphology Normal
[2025-05-27 21:33] LABS: Total Protein 6.7 g/dL (6.3-8.2)
[2025-05-28 10:42] LABS: Kappa Free Light Chain 6.06 mg/dL (0.33-1.94); Lambda Free Light Chain 1.71 mg/dL (0.57-2.63)
[2025-05-28 12:42] LABS: Albumin 62.0 % (55.8-66.1); Albumin g/dL 4.2 g/dL (3.6-5.2); Alpha 1 g/dL 0.20 g/dL (0.15-0.40); Alpha 2 g/dL 0.80 g/dL (0.50-1.00); Beta g/dL 0.70 g/dL (0.60-1.20); Gamma g/dL 0.80 g/dL (0.60-1.60)
== END 2025-05-27 03:58 | disposition home or self-care (01) ==
LOC: LBO 03:57
PROVIDERS: PCP Family Medicine; Visit Provider Internal Medicine Hematology & Oncology
DX: C90.01 Multiple myeloma in remission (principal)
CPT/HCPCS: 36415; 80053; 82784; 83883; 84165; 85025

== ENCOUNTER → 2025-07-16 08:36 | Outpatient (BNVA) | payer MEDICARE, SELFPAY | PROVIDERS: PCP Family Medicine; Referring Provider Family Medicine; Visit Provider Psychiatry & Neurology Neurology | DX: G20.A1 Parkinson's disease without dyskinesia, without mention of fluctuations (principal); G47.00 Insomnia, unspecified; K59.00 Constipation, unspecified; R41.3 Other amnesia; G62.9 Polyneuropathy, unspecified; I95.1 Orthostatic hypotension | CPT/HCPCS: 99214 ==

== ENCOUNTER 2025-08-26 01:59 | Outpatient (CLI) | payer MEDICARE, SELFPAY ==
[2025-08-26 09:40] LABS: Abs Immature Grans 0.03 10^3/uL (0.0-0.06); HCT 39.7 % (40.0-50.0); HGB 12.6 g/dL (13.5-17.5); Immature Grans % 0.6 %; MCH 29.9 pg (27.0-33.0); MCHC 31.7 % (32.0-36.0); MCV 94 fL (80-95); MPV 10.5 fL (8.0-11.0); Platelet Count 177 10^3/uL (130-400); RBC 4.22 10^6/uL (4.36-5.78); RDW 13.3 % (11.8-14.1); RDW-SD 46.0 fL; WBC 5.33 10^3/uL (4.4-10.8)
[2025-08-26 09:58] LABS: ALT 8 U/L (16-63); AST 13 U/L (15-37); Albumin 3.5 g/dL (3.4-5.0); Alkaline Phosphatase 78 U/L (46-116); Anion Gap 8.7 mmol/L (3-11); BUN 34 mg/dL (7-18); Bilirubin, Total 0.7 mg/dL (0.2-1.0); CO2 27.3 mmol/L (21.0-32.0); Calcium 8.8 mg/dL (8.5-10.1); Chloride 104 mmol/L (98-107); Estimated GFR 52.09 (mL/min/1.73m2); Glucose 110 mg/dL (74-106); Potassium 3.5 mmol/L (3.5-5.1); Sodium 140 mmol/L (136-145); Total Protein 7.2 g/dL (6.4-8.2)
[2025-08-27 10:19] LABS: Kappa Free Light Chain 11.76 mg/dL (0.33-1.94); Lambda Free Light Chain 4.10 mg/dL (0.57-2.63)
[2025-08-27 13:09] LABS: Albumin 58.2 % (55.8-66.1); Albumin g/dL 4.0 g/dL (3.6-5.2); Alpha 1 g/dL 0.30 g/dL (0.15-0.40); Alpha 2 g/dL 0.80 g/dL (0.50-1.00); Beta g/dL 0.80 g/dL (0.60-1.20); Gamma g/dL 1.00 g/dL (0.60-1.60); Total Protein 6.8 g/dL (6.3-8.2)
== END 2025-08-26 02:00 | disposition home or self-care (01) ==
LOC: LBO 01:59
PROVIDERS: PCP Family Medicine; Visit Provider Internal Medicine Hematology & Oncology
DX: C90.01 Multiple myeloma in remission (principal)
CPT/HCPCS: 36415; 80053; 82784; 83883; 84165; 85025

== ENCOUNTER → 2025-09-28 14:25 | Outpatient (BNVA) | payer MEDICARE, SELFPAY | PROVIDERS: PCP Family Medicine; Referring Provider Family Medicine; Visit Provider Physician Assistant Surgical | DX: J44.9 Chronic obstructive pulmonary disease, unspecified (principal); Z87.891 Personal history of nicotine dependence; G20.A1 Parkinson's disease without dyskinesia, without mention of fluctuations | CPT/HCPCS: 99214 ==